=== PATIENT | male | born 1975 | race Caucasian/White ===

== ENCOUNTER 2017-08-21 06:08 | Inpatient (IN) | payer OTHER, MEDICAID ==
[~2017-08-21] VITALS: Ht 195.6 cm; Wt 149.7 kg
--- NOTE | ~2017-08-21 | H ---
[address] [address] HISTORY AND PHYSICAL Name: LAURYN MOTA JR Room: [address]#: [id number] Admission: 08/21/17 Attend Phys: Ozzy Solis DO Discharge: 08/24/17 Date of : 75 Report #: [id number] THIS REPORT FOR: //name// Please refer to the History and Physical performed in the physician's office. By: 1132Medical Records Staff ANABELLE /BRIANNA
[~2017-08-21 06:08] MED LIST: ALL DAY ALLERGY10 M3 PO; AMLODIPINE-OLM1 EAC1 PO; BENICAR20 MG PO; FLONASE 0.05%50 MCG NASAL; NORCO 7.5-3251 EACH PO; NORVASC2.5 MG PO; OMEPRAZOLE40 MG PO; ZOFRAN4 MG PO
[2017-08-21 06:30] VITALS: BP 135/79
[2017-08-21 07:26] LABS: HEMATOCRIT 44.7 % (42.0-52.0); HEMOGLOBIN 15.4 gm/dL (14.0-18.0); MCH 28.9 pg (26.0-34.0); MCHC 34.5 g/dL (28.0-37.0); MCV 83.6 fL (80.0-100.0); RBC 5.34 mil/uL (4.50-6.00); RDW-CV 13.4 % (10.5-14.5); WBC 6.8 thou/uL (4.0-11.0)
[2017-08-21 07:31] LABS: CALCIUM 8.8 mg/dL (8.5-10.1); CREATININE 1.2 mg/dL (0.6-1.3); POTASSIUM 3.1 mmol/L (3.5-5.1)
[2017-08-21 07:36] LABS: TOTAL PROTEIN 7.4 g/dL (6.4-8.2)
[2017-08-21 13:00] VITALS: BP 132/89
[2017-08-21 16:00] VITALS: BP 137/82
[2017-08-21 19:45] VITALS: BP 108/55
[2017-08-22 00:47] VITALS: BP 110/68
[2017-08-22 03:58] LABS: ABSOLUTE EOSINOPHILS 0.2 thou/uL (0.0-0.7); ABSOLUTE LYMPHOCYTES 2.2 thou/uL (0.8-5.3); ABSOLUTE MONOCYTES 0.8 thou/uL (0.0-1.2); ABSOLUTE NEUTROPHILS 7.9 thou/uL (1.6-8.1); BASOPHILS 0.3 %; HEMATOCRIT 43.6 % (42.0-52.0); HEMOGLOBIN 14.6 gm/dL (14.0-18.0); LYMPHOCYTES 20.1 %; MCHC 33.6 g/dL (28.0-37.0); MCV 86.3 fL (80.0-100.0); MONOCYTES 7.1 %; MPV 10.1 fl. (7.2-11.1); NUCLEATED RBCS 0 /100WBC; PLATELET COUNT* 171 thou/uL (150-400); POLYS 70.5 %; RBC 5.05 mil/uL (4.50-6.00); RDW-CV 13.2 % (10.5-14.5); WBC 11.1 thou/uL (4.0-11.0)
[2017-08-22 04:07] LABS: CALCIUM 7.8 mg/dL (8.5-10.1); CREATININE 1.1 mg/dL (0.6-1.3); POTASSIUM 3.3 mmol/L (3.5-5.1)
[2017-08-22 09:00] VITALS: BP 112/70
[2017-08-22 12:23] VITALS: BP 122/80
[2017-08-22 21:30] VITALS: BP 125/76
[2017-08-23] VITALS: BP 132/79
[2017-08-23 04:19] LABS: ABSOLUTE EOSINOPHILS 0.6 thou/uL (0.0-0.7); ABSOLUTE LYMPHOCYTES 1.8 thou/uL (0.8-5.3); ABSOLUTE MONOCYTES 0.6 thou/uL (0.0-1.2); ABSOLUTE NEUTROPHILS 5.4 thou/uL (1.6-8.1); BASOPHILS 0.2 %; EOSINOPHILS 7.4 %; HEMATOCRIT 38.2 % (42.0-52.0); HEMOGLOBIN 13.2 gm/dL (14.0-18.0); LYMPHOCYTES 21.6 %; MCHC 34.6 g/dL (28.0-37.0); MCV 83.8 fL (80.0-100.0); MONOCYTES 7.2 %; MPV 9.8 fl. (7.2-11.1); NUCLEATED RBCS 0 /100WBC; PLATELET COUNT* 156 thou/uL (150-400); POLYS 63.6 %; RBC 4.56 mil/uL (4.50-6.00); RDW-CV 12.9 % (10.5-14.5); WBC 8.5 thou/uL (4.0-11.0)
[2017-08-23 04:30] LABS: CALCIUM 8.1 mg/dL (8.5-10.1); POTASSIUM 3.5 mmol/L (3.5-5.1)
[2017-08-23 08:00] VITALS: BP 130/82
[2017-08-23 11:30] VITALS: BP 132/87
[2017-08-23 16:19] VITALS: BP 123/78
[2017-08-23 20:09] VITALS: BP 131/88
[2017-08-24] VITALS: BP 127/71
[2017-08-24 08:00] VITALS: BP 154/85
[2017-08-24 08:36] LABS: ABSOLUTE EOSINOPHILS 0.7 thou/uL (0.0-0.7); ABSOLUTE LYMPHOCYTES 1.6 thou/uL (0.8-5.3); ABSOLUTE MONOCYTES 0.5 thou/uL (0.0-1.2); ABSOLUTE NEUTROPHILS 4.7 thou/uL (1.6-8.1); BASOPHILS 0.4 %; EOSINOPHILS 9.3 %; HEMATOCRIT 40.2 % (42.0-52.0); HEMOGLOBIN 13.7 gm/dL (14.0-18.0); LYMPHOCYTES 21.2 %; MCH 28.7 pg (26.0-34.0); MCHC 34.1 g/dL (28.0-37.0); MCV 84.1 fL (80.0-100.0); MONOCYTES 6.1 %; MPV 9.4 fl. (7.2-11.1); NUCLEATED RBCS 0 /100WBC; PLATELET COUNT* 170 thou/uL (150-400); RBC 4.78 mil/uL (4.50-6.00); RDW-CV 13.1 % (10.5-14.5); WBC 7.4 thou/uL (4.0-11.0)
[2017-08-24 08:42] LABS: CALCIUM 8.1 mg/dL (8.5-10.1); CREATININE 0.8 mg/dL (0.6-1.3); POTASSIUM 3.8 mmol/L (3.5-5.1)
[2017-08-24 12:04] VITALS: BP 130/85
[2017-08-24 14:16] VITALS: BP 130/85
--- NOTE | 2017-08-26 14:03 | S ---
[address] [address] SURGICAL PATH RPT PROCEDURE Name: SVETLANALAURYNBELLA Thomas JR Room: [address] IN [facility]#: [id number] Admission: 08/21/17 Date of : 75 Discharge: 08/24/17 Report #: [id number] Path Case #: [id number] PATHOLOGY REPORT COLLECTION DATE: 08/21/2017 RECEIVED DATE: 08/25/2017 SUBMITTING PHYS: Dr. Ozzy Solis OTHER PHYS: SPECIMEN(S) RECEIVED: A.Right colon B.Abdominal wall mass C.Meckels diverticulum * * * * * * * * * * * * FINAL DIAGNOSIS: A. Right colon, laparoscopic hemicolectomy: - Segment of terminal ileum and colon with changes of recent appendectomy including surgically absent appendix, foreign body type granulomatous response including scant birefringent foreign material, fibrosis, and chronic and mild acute serositis, with no residual malignancy. - Nineteen benign pericolic lymph nodes. (see comment) B. Abdominal wall mass: - Benign fibrofatty tissue with focal necrosis and acute and chronic serositis. C. Meckel's diverticulum: - Segment of benign small intestine with Meckel's diverticulum including focus of benign heterotopic gastric tissue. 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) Histologic Grade Determination: Mitotic rate Mitotic Rate: < 2 mitoses / 2 mm2 Tumor Size: Greatest dimension in Centimeters (cm): 1 Tumor Extent Tumor Extension: Tumor invades the subserosa / mesoappendix without involvement of visceral peritoneum Accessory Findings Lymphovascular Invasion: Not identified Perineural Invasion: [place] [address] SURGICAL PATH RPT PROCEDURE Name: LAURYN MOTA JR Room: [address]#: [id number] Admission: 08/21/17 Date of : 75 Discharge: 08/24/17 Report #: [id number] Path Case #: [id number] Margins: All margins are uninvolved by tumor # Margins Examined: Proximal Distal Radial or mesenteric Distance of Tumor From Closest Margin: Specify in Centimeters (cm): 3 Specify Closest Margin: Radial or mesenteric Other Margin(s) (repeat as needed) Specify Margin: Margin Status: Uninvolved by tumor For Right Hemicolectomy Specimens Only Proximal Margin: Uninvolved by tumor Distal Margin: Uninvolved by tumor Radial or Mesenteric: Uninvolved by tumor Other Margin(s) (repeat as needed) Specify Margin: Margin Status: Uninvolved by tumor LYMPH NODES Regional Lymph Nodes: Number of Lymph Nodes Involved: Specify number: 0 Number of Lymph Nodes Examined: Specify number: 19 PATHOLOGIC STAGE CLASSIFICATION (PTNM, AJCC 8TH EDITION) Primary Tumor (pT): pT3: Tumor more than 4 cm or with subserosal invasion or involvement of the mesoappendix Regional Lymph Nodes (pN): pN0: No regional lymph node metastasis COMMENT: The synoptic data is updated to include information from the prior appendectomy in which adenoneuroendocrine carcinoma was identified ([id number]). The grossly suspected "suspicious lymph node" submitted as A11 is seen histologically to represent benign fatty tissue with a prominent granulomatous response without a lymph node. (RJAAN:mgr; 08/26/2017) PATHOLOGIST: Trey Espinosa M.D. REPORT ELECTRONICALLY SIGNED BY: Trey Espinosa M.D. DATE/TIME: 08/26/2017 14:02 * * * * * * * * * * * * GROSS PATHOLOGY: A. Received in formalin labeled "Lauryn Mota Jr, right colon" and consists of a right hemicolectomy specimen, unopened, with colon measuring 11.5 cm in length by 4 cm in diameter and terminal ileum measuring 3.0 cm in length by 2.2 cm in diameter. The appendix is absent. There is intact fat surrounding the entire specimen ranging in thickness from 2.0 cm to 3.6 cm. [place] [address] SURGICAL PATH RPT PROCEDURE Name: LAURYN MOTA JR Room: [address] IN M..#: [id number] Admission: 08/21/17 Date of : 75 Discharge: 08/24/17 Report #: [id number] Path Case #: [id number] well-preserved non-peritonealized surface identified which is completely inked black. There is marked induration and red discoloration of the cecal serosa (probable site of appendix) which is inked blue. The closest approximation of this site to a margin is to the radial/pericolic fatty margin, located 3 cm away. The segment is opened. The appendiceal orifice is identified. There are no masses at this site. The remaining colonic mucosa is murdock, green, focally hyperemic, and glistening. The ileocecal valve is dark red. The terminal ileum mucosa is grossly unremarkable. Sectioning the appendiceal orifice region reveals multiple underlying metallic jamie. Sectioning the contiguous fat reveals several lymph node candidates ranging in size from 0.2 cm to 1.1 cm in greatest dimension. One lymph node candidate shows soft glistening murdock to focally yellow cut surfaces. Project Eng sections are submitted as follows: A1 proximal margin A2 distal margin A3 pericolic margin nearest site of appendix, en face A4-A7 appendiceal orifice and surrounding parenchyma, entire area submitted A8-A10 whole lymph node candidates A 11 one lymph node candidate bisected, suspicious lymph node A 12 one lymph node candidate trisected A 13 one lymph node candidate trisected A 14 one lymph node candidate bisected B. Received in formalin labeled "Lauryn Mota Jr, abdominal wall mass" and consists of a glistening, yellow, and hemorrhagic fragment of fat measuring 1.9 x 1.0 x 0.5 cm. Sectioning reveals no gross lesions. The specimen is totally submitted as B1. C. Received in formalin labeled "Lauryn Mota Jr, Meckel's diverticulum" and consists of a conical portion of gastrointestinal tissue. The excised portion of intestine measures 1.8 x 1.7 cm in greatest dimension. There is an outpouching arising from one surface that measures 2.4 cm in length with a diameter ranging from 0.6 cm to 1.6 cm. The margin is inked. Sectioning reveals glistening murdock and green mucosa throughout the entire specimen. The specimen is totally submitted C1-C3. (MAKENZIE; 08/25/2017) CLINICAL HISTORY: Adenoneuroendocrine carcinoma INITIAL CPT CODE(S): A; 07663 B; 40656 C; 45177 Professional services [place] [address] SURGICAL PATH RPT PROCEDURE Name: LAURYN MOTA JR Room: [address]#: [id number] Admission: 08/21/17 Date of : 75 Discharge: 08/24/17 Report #: [id number] Path Case #: [id number] [address] [place] [address] Technical services performed by [employer] at [address] [place] [address], [facility] [address] [address]. [facility] [address] [place] [address] PHONE: [phone] DIRECTOR: Lee Jim M.D. * * * END OF REPORT * * *
--- NOTE | 2017-08-31 20:23 | OP ---
[address] [address] OPERATIVE REPORT Name: LAURYN MOTA JR Room: [address]#: [id number] Admission: 08/21/17 Attend Phys: Ozzy Solis DO Discharge: 08/24/17 Date of : 75 Report #: [id number] THIS REPORT FOR: //name// CC: Ozzy Solis [facility] physician/PCP DICTATED BY: Gregoria Mayberry DO DATE OF SERVICE: 08/21/2017 PREOPERATIVE DIAGNOSIS: Carcinoma of the appendix, abdominal wall mass. POSTOPERATIVE DIAGNOSIS: Carcinoma of the appendix, Meckel diverticulum, and abdominal wall mass. SURGEON: Gregoria Mayberry DO, PGY-5. SUPERVISING SURGEON: Ozzy Solis DO. INTERIOR DESIGNER: Jerardo Botello, PGY1; and Johnnie ____ MS3. PROCEDURE: Laparoscopic right hemicolectomy with ileotransverse anastomosis, Meckel diverticulectomy and excision of abdominal wall mass. ANESTHESIA: General endotracheal and postoperative TAP blocks. ESTIMATED BLOOD LOSS: 100 mL. SPECIMENS: Right colon, abdominal wall mass and Meckel diverticulum. COMPLICATIONS: None. DISPOSITION: PACU to med/surg. OPERATIVE DETAILS: After obtaining proper informed consent, the patient was brought to the operating room and laid supine on the operating table. He was given preoperative antibiotics and sedated and intubated under the benefit of general anesthesia. Bishop catheter was placed, and he was placed in lithotomy position and arms were tucked and padded bilaterally. Abdomen was then prepped and draped in the usual sterile fashion, and timeout was performed. Supraumbilical incision was made, and dissection of subcutaneous tissue was carried out to the level of the fascia with the use of cautery, nicking incision was made in the fascia and this was grasped with 2 Thelma clamps and elevated. Peritoneum was entered bluntly, and finger was placed in abdomen, and peritoneum was swept and found to be free of adhesions. [id number] 0 Vicryl suture was placed in the fascia, and the Corinne [place]car [place] [address] OPERATIVE REPORT Name: LAURYN MOTA JR Room: [address] IN [facility].#: [id number] Admission: 08/21/17 Attend Phys: Ozzy Solis DO Discharge: 08/24/17 Date of : 75 Report #: [id number] Abdomen was insufflated. Camera was placed in the abdomen and brief quadrant inspection was undertaken. There was a small mass in the right lateral abdominal wall, which appeared to be small piece of necrotic fat. 5 mm trocars were then placed in the supraumbilical position and suprapubic position under direct visualization. ____ dissection to the cecum. The white line of Toldt was incised with the use of cautery and this was extended superiorly towards hepatic flexure. I then began at the mid and transverse colon, and the peritoneum was taken down until we have completely taken down the hepatic flexure and had good mobilization of the colon to the midline. Once we had completed dissection of the right colon and hepatic flexure, cecum was grasped with laparoscopic Osiris, and the abdomen was desufflated. Supraumbilical incision was extended and connected through midline, and fascial incision was extended superiorly. Frankie wound protector was then placed in the abdomen, and cecum was brought out ____ abdominal wall. ____ 80 mm blue load RUBY stapler. LigaSure device was then used to serially clamp and ligate the mesentery till we reached our distal resection margin, and again, the colon was ligated with 80 mm RUBY stapler ____ grasped with an Allis clamp, and enterotomies were made. A 80 mm RUBY stapler was used to make our common channel enterotomy. Enterotomy was closed with 60 mm TA stapler. 2-0 Vicryl interrupted stitches were used to support the anastomosis and was placed back in the abdomen. We then capped and placed an Frankie wound protector and abdomen was insufflated. Right upper quadrant was inspected for hemostasis. Small abdominal wall mass was ligated from the abdominal wall with the use of cautery and sent to pathology for further evaluation. While we were inspecting the anastomosis, we did identify a Meckel diverticula, and this was brought out through a midline incision and ligated with a TA 60 stapler and sent to pathology for further evaluation. Frankie wound protector was brought out, ____ midline incision was reapproximated with 0 looped PDS suture. Subcutaneous tissue was then reapproximated with 3-0 Vicryl, and skin was closed with 4-0 Monocryl, followed by Mastisol, Steri-Strips and sterile Tegaderm dressing. All counts were correct at the end of the case. Drapes were removed, and the patient received TAP blocks per Anesthesia and then the patient was awoken and extubated and brought to PACU in good condition for further recovery. Dr. Ozzy Solis was present and scrubbed for the entirety of the procedure. <ELECTRONICALLY SIGNED> By: Ozzy Solis DO 08/31/17 2023 [id number] pritesh Thurman
== END 2017-08-24 14:47 | disposition home or self-care (01) | DRG 331 ==
LOC: M.TBA 06:08 → M.PRE 09:23 → M.ORTHSURG 12:30 → M.PRE 12:31 → M.2W 08-22 08:01
PROVIDERS: Surgery; ADMIT Surgery
PROC: 0WB Anatomical Regions, General, Excision (ICD-10-PCS; principal; 2017-08-21)
PROC: 0DB84ZZ Excision of Small Intestine, Percutaneous Endoscopic Approach (ICD-10-PCS; principal; 2017-08-21)
PROC: 0DTF4ZZ Resection of Right Large Intestine, Percutaneous Endoscopic Approach (ICD-10-PCS; principal; 2017-08-21)
DX: C18.1 Malignant neoplasm of appendix (principal); R19.00 Intra-abdominal and pelvic swelling, mass and lump, unspecified site; D3A.020 Benign carcinoid tumor of the appendix; I10 Essential (primary) hypertension; K21.9 Gastro-esophageal reflux disease without esophagitis; Q43.0 Meckel's diverticulum (displaced) (hypertrophic); Z79.899 Other long term (current) drug therapy; Z90.49 Acquired absence of other specified parts of digestive tract

== ENCOUNTER 2017-11-08 17:50 | Emergency (ER) | payer OTHER, MEDICAID ==
[~2017-11-08] VITALS: Ht 195.6 cm; Wt 142.9 kg
[2017-11-08] MEDS ORDERED: MULTI VITAMIN1 EACH PO (18:10)
[2017-11-08] MEDS ORDERED: TORADOL 10 MG T10 MG PO (18:46)
[2017-11-08 18:54] VITALS: BP 145/95
== END 2017-11-08 18:55 | disposition home or self-care (01) ==
LOC: M.ERS 17:50
DX: M54.5 Low back pain (principal); I10 Essential (primary) hypertension; K21.9 Gastro-esophageal reflux disease without esophagitis; Z90.49 Acquired absence of other specified parts of digestive tract; Z90.89 Acquired absence of other organs; Z85.038 Personal history of other malignant neoplasm of large intestine; Z88.8 Allergy status to other drugs, medicaments and biological substances; Z88.2 Allergy status to sulfonamides